=== PATIENT | male | born 1965 | race Caucasian/White ===

== ENCOUNTER 2017-02-03 10:34 | Emergency (ER) | payer OTHER ==
[2017-02-03 10:50] VITALS: BP 142/90; PULSE 85; RESP 18; TEMP 98.8; O2SAT 95
--- NOTE | 2017-02-03 11:55 | EDPHY ---
H & P Stated Complaint: Hernia repair~15 yrs ago;thinks mesh is coming out;noticed 2 wks ago Time Seen by Provider: 02/03/17 11:12 HPI/ROS: CHIEF COMPLAINT: Possible hernia HISTORY OF PRESENT ILLNESS: The patient is a 51 y/o male with a history of an umbilical hernia repair 15 years ago who arrives at the referral of his doctor for evaluation of possible recurring hernia. For the last month he has noticed a small bump around his umbilicus with intermittent mild pain. He thinks there may be a complication or failure of the mesh used to originally repair the hernia. He denies history of ingrown hairs at the site or any drainage. He also states he sometimes notices a lump in his left inguinal region and scrotum that either spontaneously resolves or is self-reducible. He has no current symptoms in his groin. He denies fever, bowel changes, vomiting, or other complaints. REVIEW OF SYSTEMS: Constitutional: No fever, no chills Eyes: No visual changes ENT: No sore throat Respiratory: No cough, no shortness of breath Cardiac: No chest pain Gastrointestinal: see HPI Genitourinary: No hematuria, no dysuria Musculoskeletal: No leg pain or swelling Skin: No rash Neurological: No headache, no numbness, no weakness Psychiatric: No depression - Personal History Current Tetanus Diphtheria and Acellular Pertussis (TDAP): Yes Tetanus Vaccine Date: 2011 - Medical/Surgical History PMH: PMH includes: 1. Type 2 diabetes 2. Hypertension 3. Chronic cervical pain with multiple surgeries and fusion 4. Hernia repair 15 years ago 5. Multiple TIAs Prior medical records reviewed including admission 11/23/14 for vertigo and TIAs. Hx Asthma: No Hx Chronic Respiratory Disease: No Hx Diabetes: Yes Hx Cardiac Disease: No Hx Renal Disease: No Hx Cirrhosis: No Hx Alcoholism: No Hx HIV/AIDS: No Hx Splenectomy or Spleen Trauma: No Other PMH: HTN, neck surgery x3 ended up with complete neck fusion, hx TIAs, ing hernia repair on L - Social History Smoking Status: Current some day smoker Additional Social History: Smoker. . - Physical Exam Exam: General Appearance: Alert, no distress Eyes: Pupils equal and round, no conjunctival pallor or injection ENT, Mouth: Mucous membranes moist Neck: Normal inspection Respiratory: Lungs are clear to auscultation Cardiovascular: Regular rate and rhythm Gastrointestinal: Abdomen is soft and non-tender, small 2-3mm bump inside umbilicus without signs of infection. : Normal external genitalia, no inguinal hernia palpated Neurological: A&O, nonfocal, normal gait Skin: Warm and dry, no rash Extremities: Nontender, no pedal edema Psychiatric: Mood and affect normal Constitutional: Initial Vital Signs Temperature (C) 37.1 C 02/03/17 10:40 Heart Rate 85 02/03/17 10:40 Respiratory Rate 18 02/03/17 10:40 Blood Pressure 142/90 H 02/03/17 10:40 O2 Sat (%) 95 02/03/17 10:40 O2 Delivery Mode Room Air Allergies/Adverse Reactions: amoxicillin Allergy (Mild, Verified 02/03/17 10:46) GI Home Medications: Medication Instructions Recorded Aspirin [Aspirin 81mg (*)] 81 mg PO DAILY 02/03/17 Glimepiride [Amaryl 2 MG (*)] 2 mg PO 02/03/17 Insulin NPH Human [humULIN N 100 0 units SC 02/03/17 UNITS/ML (*)] Losartan Potassium [Cozaar 50 mg 50 mg PO 02/03/17 (*)] metFORMIN HCL [Glucophage 500 mg 500 mg PO 02/03/17 (*)] Medical Decision Making ED Course/Re-evaluation: This is a well-appearing 51 y/o male who presents for evaluation of possible umbilical hernia at the referral of his doctor. He noticed a small bump in his umbilicus about 1 month ago with intermittent and mild associated pain. On exam , there is a raised area within the umbilicus, but no FB or infection present. No indication for I&D today, though he certainly could have subQ mesh that is protruding. He also describes an intermittent left inguinal hernia that is self -reducible and is not present on my exam. No evidence for imaging today. I've recommended follow up with a surgeon and given strict return precautions. He is comfortable with this plan. Differential Diagnosis: includes though not limited to incarcerated hernia, abscess, cellulitis Departure - Departure Disposition: Home, Routine, Self-Care Clinical Impression: Inguinal hernia Condition: Good Instructions: Inguinal Hernia (ED), Umbilical Hernia (ED) Additional Instructions: 1. Apply a warm compress to your umbilical region as needed to help with symptoms. 2. Follow up with Dr. Gomez, surgeon, in the next week. 3. Return to the ED for severe pain, fever, inability to have a bowel movement, or other worsening of condition. Referrals: Kwame Caceres [Primary Care Provider] - As per Instructions David Reyna MD [Medical Doctor] - As per Instructions Report Scribed for: Delmi Navarrete Report Scribed by: Татьяна Trivedi Date of Report: 02/03/17 Time of Report: 11:21 Physician Review and Approval Statement: 02/03/17 11:21 Portions of this note were transcribed by a medical laboratory assistant. I personally performed a history, physical exam, medical decision making, and confirmed accuracy of information the transcribed note.
== END 2017-02-03 12:33 | disposition home or self-care (01) ==
DX: K40.90 Unilateral inguinal hernia, without obstruction or gangrene, not specified as recurrent (principal); E11.9 Type 2 diabetes mellitus without complications; I10 Essential (primary) hypertension; F17.200 Nicotine dependence, unspecified, uncomplicated; Z79.4 Long term (current) use of insulin; Z79.82 Long term (current) use of aspirin; Z79.84 Long term (current) use of oral hypoglycemic drugs

== ENCOUNTER → 2017-02-24 | Outpatient (CLI) | payer OTHER ==
[~2017-02-24] MED LIST: IOPAMIDOL (ISOVUE-300) 100 ML BTL ONE
== END ==
LOC: FIMAGING 13:30
PROVIDERS: ATTEND Family Medicine
DX: R10.33 Periumbilical pain (principal); R10.32 Left lower quadrant pain; R19.7 Diarrhea, unspecified; N40.0 Benign prostatic hyperplasia without lower urinary tract symptoms; R93.3 Abnormal findings on diagnostic imaging of other parts of digestive tract; R93.8 Abnormal findings on diagnostic imaging of other specified body structures
CPT/HCPCS: Q9967

== ENCOUNTER → 2017-08-23 | Outpatient (CLI) | payer OTHER | LOC: FIMAGING 13:19 | PROVIDERS: ATTEND Family Medicine | DX: N43.3 Hydrocele, unspecified (principal) ==